=== PATIENT | male | born 1970 | race Caucasian/White ===

== ENCOUNTER 2017-04-29 02:01 | Emergency (ER) | payer BC ==
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
[2017-04-29] MEDS ORDERED: Ketorolac 60 MG/2 ML SDV IM ONE (03:46)
[2017-04-29] MEDS ORDERED: Acetaminophen 500 MG Tab PO ONE (03:46)
[2017-04-29] MEDS ORDERED: Take Home: traMADol 50 MG, 4 Tab Pack PO ONE (04:05)
== END 2017-04-29 04:40 | disposition home or self-care (01) ==
LOC: VM.ED 02:01
DX: S02.651A Fracture of angle of right mandible, initial encounter for closed fracture (principal); S02.652A Fracture of angle of left mandible, initial encounter for closed fracture; Y04.0XXA Assault by unarmed brawl or fight, initial encounter; Y92.89 Other specified places as the place of occurrence of the external cause
CPT/HCPCS: 70486; 96372; 99284; A9270; J1885